=== PATIENT | male | born 1990 | race Caucasian/White ===

== ENCOUNTER 2019-09-29 20:20 | Emergency (ER) | payer OTHER, SELFPAY ==
--- NOTE | ~2019-09-29 | CT_ITS ---
EXAMINATION: CT BRAIN W/O DATE: 09/29/2019 20:58 INDICATION: Seizure TECHNIQUE: Computed tomography (CT) of the head was performed without intravenous contrast. The dose- length product was 908.00 mGy-cm. Automated exposure control and iterative reconstruction technique w ere employed. COMPARISON: No prior studies for comparison. FINDINGS: [Normal brain parenchymal volume for age. Normal matson-white differentiation. No acute intra cranial hemorrhage, infarction, mass or mass effect. No ventriculomegaly or midline shift. Midline sagittal images demonstrate a normal corpus callosum, c raniovertebral junction and sella turcica. Basilar cisterns are patent. Paranasal sinuses and mastoids are pneumatized. No depressed skull fractures.] IMPRESSION: 1. No acute intracranial abnormality. Reviewed, dictated and finalized at [facility]. Reviewed, dictated and finalized at location [facility].
--- NOTE | ~2019-09-29 | XR_ITS ---
EXAMINATION: XR shoulder LT min 2V DATE: 09/29/2019 21:53 INDICATION: Left shoulder pain. TECHNIQUE: 5 views of left shoulder were obtained. COMPARISON: None. FINDINGS: Bone alignment is normal. No fracture. Joint spaces are well maintained. IMPRESSION: 1. Normal left shoulder. Reviewed, dictated and finalized at location [facility]. [employer]CIAL DEVELOPER IMPRESSION: 1. Normal left shoulder.
--- NOTE | ~2019-09-29 | CT_ITS ---
EXAMINATION: CTA brain carotid DATE: 09/29/2019 22:50 INDICATION: Seizure. TECHNIQUE: Computed tomographic angiography (CTA) of the head was performed with 100 mL Omnipaque-350 intravenous contrast. CTA of the neck was performed with intravenous contrast. Automated exposure co ntrol and iterative reconstruction technique were employed. The dose-length product was 1066.13 mGy-c m. Maximum intensity projection and volume rendered 3D-reconstructions were created by the [employer]LeBUZZi st on a separate workstation. COMPARISON: Head CT 09/29/2019 FINDINGS: HEAD CTA: There is no intracranial hemorrhage, acute infarction, or abnormal intracranial mass lesion . The ventricles are normal in size. Left vertebral artery is dominant. There is no significant steno sis of basilar artery or the posterior cerebral arteries. There is no significant stenosis of the int racranial internal carotid arteries or anterior or middle cerebral arteries. Anterior communicating a rtery is normal. The posterior communicating arteries are normal. There is no aneurysm. The orbits ar e normal. There are changes of left mastoidectomy. There is a left mastoid effusion. The paranasal si nuses are clear. NECK CTA: There is no significant stenosis of the vertebral arteries. The cervical carotid arteries a re normal. There is 0% stenosis of the proximal right internal carotid artery relative to normal dist al artery lumen diameter (NASCET criteria). There is 0% stenosis of the proximal left internal caroti d artery relative to normal distal artery lumen diameter. There are no pathologically enlarged lymph nodes. There is levoscoliosis of cervical spine. IMPRESSION: 1. Normal brain. No aneurysm or significant intracranial arterial stenosis. 2. Normal neck arteries. Reviewed, dictated and finalized at location [facility]. UTER TESTER
--- NOTE | 2019-09-29 20:12 | ECG_ITS ---
Measurements Intervals [place] Rate: 109 P: 66 ID: [id number] QRS: 72 QRSD: 101 T: 69 QT: 348 QTc: 470 Interpretive Statements SINUS TACHYCARDIA ABNORMAL ECG Electronically Signed On 09-30-2019 7:01:14 WASTE RECYCLER by Lino Hernández D.O.
[2019-09-29 20:15] VITALS: BP 102/69; PULSE 106; RESP 15; TEMP 36.8; O2SAT 97
[2019-09-29 20:26] VITALS: PULSE 105
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
[2019-09-29 20:40] LABS: Glucose Point of Care 73 (65-105)
[2019-09-29] MEDS: SODIUM CHLORIDE 0.9% IV 1,000 ML 999 ML IV CONT (20:41)
--- NOTE | 2019-09-29 20:42 | PC.NURSE ---
MANISH FROM DR AN FOR ZOFRAN 4 MG IV
[2019-09-29] MEDS: ONDANSETRON INJ 4 MG/2 ML VIAL IV PUSH (20:43)
[2019-09-29 20:51] LABS: Basophils Percent Auto 0.5 % (0.2-1.2); Eosinophils Absolute Auto 0.1 K/mm3 (0-0.3); Eosinophils Percent Auto 1.6 % (0-4.4); Hematocrit 41.2 % (42.0-52.0); Hemoglobin 14.1 g/dL (14.0-18.0); Immature Granulocyte Absolute 0.03 K/mm3 (0.00-0.031); Immature Granulocyte Percent A 0.5 % (0-0.5); Lymphocytes Absolute Auto 3.28 K/mm3 (0.9-3.2); Lymphocytes Percent Auto 57.1 % (18.3-44.2); Mean Corpuscular HGB Conc 34.2 g/dl (32-36); Mean Corpuscular Hemoglobin 31.1 pg (26-34); Mean Corpuscular Volume 90.7 fl (80-100); Mean Platelet Volume 9.5 fl (7.4-10.4); Monocytes Absolute Auto 0.7 K/mm3 (0.1-0.6); Monocytes Percent Auto 11.5 % (2.6-8.5); Neutrophils Absolute Auto 1.7 K/mm3 (1.3-6.7); Neutrophils Percent Auto 28.8 % (45.5-73.1); Platelet Count Result 231 k/mm3 (150-375); Red Blood Count 4.54 M/mm3 (4.6-6.20); Red Cell Distribution Width 11.6 % (11.5-14.5); White Blood Count 5.7 K/mm3 (4.5-10.0)
[2019-09-29 21:02] LABS: Ethanol < 10 mg/dL (<10)
[2019-09-29 21:03] LABS: Alanine Aminotransferase 28 U/L (4-50); Albumin Level 4.7 g/dL (3.5-5.1); Alkaline Phosphatase 45 U/L (38-126); Aspartate Amino Transferase 31 U/L (17-59); Bilirubin,Total 0.6 mg/dL (0.2-1.3); Blood Urea Nitrogen 20 mg/dL (9-20); Carbon Dioxide 17 mmol/L (22-30); Chloride 100 mmol/L (98-107); Estimated CRCL calculation 92 ml/min; Estimated Glomerular Filt Rate > 60; Glucose 73 mg/dL (75-110); Potassium 3.5 mmol/L (3.4-5.0); Sodium 138 mmol/L (137-145)
[2019-09-29 21:16] VITALS: BP 111/78; PULSE 100; RESP 18; O2SAT 98
--- NOTE | 2019-09-29 21:20 | PC.NURSE ---
PT NOTED TO HAVE BG OF 74, PT OFFERED MANY TIMES SOME SORT OF GLUCOSE PT HAS CONTINUED TO REFUSE. MOTHER IN ROOM WITH PT
[2019-09-29 21:43] LABS: Add Urine Microscopic? NO; Appearance Urine Clear (Clear); Bilirubin Urine Negative (Negative); Blood Urine Negative (Negative); Color Urine Yellow (Yellow); Glucose Urine UA Negative (Negative); Ketones Urine Negative (Negative); Leukocyte Esterase Ur Negative LEU/UL (NEGATIVE); Nitrate Urine Negative (Negative); Protein Urine Negative (Negative); Specific Grav Ur 1.018 (1.001-1.035); Urobilinogen Urine Negative mg/dL (<2.0)
[2019-09-29 21:57] LABS: Amphetamine Screen Urine Negative; Barbiturate Screen Urine Negative; Benzodiazepines Screen Urine Negative; Cannabinoid Screen Urine Negative; Cocaine Screen Urine Negative; Methadone Screen Urine Negative; Opiate Screen Urine Negative; Phencyclidine Screen Urine Negative
[2019-09-29 23:04] VITALS: BP 107/81; PULSE 96; RESP 18; O2SAT 98
--- NOTE | 2019-09-29 23:13 | PC.NURSE ---
assumed care of pt at this time. received report from blaze lopez.
[2019-09-29 23:51] VITALS: BP 107/72; PULSE 98; RESP 18; TEMP 36.7; O2SAT 99
--- NOTE | 2019-10-05 11:22 | PC.NURSE ---
late entry for 09/29/19 1l ns infused ended 2140
== END 2019-09-29 23:53 | disposition home or self-care (01) ==
PROVIDERS: Family Medicine; Emergency Provider General Practice
DX: R56.9 Unspecified convulsions (principal)
CPT/HCPCS: 36415; 70450; 70496; 70498; 73030; 80053; 80307; 81003; 82948; 82962; 85025; 93005; 96361; 96374; 99284; J2405; J7030; Q9967